=== PATIENT | male | born 1990 | race African-American/Black ===

== ENCOUNTER 2016-09-23 11:47 | Emergency (ER) | payer SELFPAY ==
[~2016-09-23] VITALS: Ht 170.2 cm; Wt 76.0 kg
[~2016-09-23 11:47] MED LIST: CARB200T16 PO
[2016-09-23 11:50] VITALS: BP 130/70; PULSE 82; RESP 16; TEMP 98.1; O2SAT 98
[2016-09-23] MEDS ORDERED: CARB200T PO (11:51)
--- NOTE | 2016-09-23 12:37 | PD ---
HPI Chief Complaint: Musculoskeletal Complaint Time Seen by Provider: 12:35 Travel History International Travel<30 days: No Contact w/Intl Traveler<30days: No Traveled to known affect area: No History of Present Illness HPI 26-year-old male presents to the emergency department for evaluation right ankle injury that occurred yesterday morning while playing basketball. He states he inverted his right ankle and fell. He denies any other injury. He reports a history of seizures. He takes carbamazepine for his seizures. Patient denies any head injury else see. No neck pain or back pain. No chest pain or abdominal pain. No nausea or vomiting. No other complaints. PFSH Past Medical History Autoimmune Disease: No Anxiety: No Depression: No Cardiovascular Problems: No Diminished Hearing: No Gastrointestinal Disorders: No Genitourinary: No Musculoskeletal: No Neurologic: Yes (SEIZURE) Psychiatric: No Immunizations Current: Yes Seizures: Yes Past Surgical History Eye Surgery: Yes ([id number] NUMEROUS EYE SURGERIES right) Other Surgery: Yes Social History Alcohol Use: No Tobacco Use: No Substance Use: Yes (MARIJUANA) Allergies-Medications (Allergen,Severity, Reaction): Coded Allergies: No Known Allergies (Verified , 09/23/16) Reported Meds & Prescriptions Reported Meds & Active Scripts Active Reported Carbamazepine 200 Mg Tab 200 Mg PO BID Review of Systems Except as stated in HPI: all other systems reviewed are Neg Physical Exam Narrative GENERAL: Well-developed well-nourished male patient, afebrile. SKIN: Warm and dry. HEAD: Normocephalic. Atraumatic. EYES: No scleral icterus. No injection or drainage. NECK: Supple, trachea midline. No JVD or lymphadenopathy. CARDIOVASCULAR: Regular rate and rhythm without murmurs, gallops, or rubs. Right pedal pulse is 2+. RESPIRATORY: Breath sounds equal bilaterally. No accessory muscle use. Lungs sounds are clear to auscultation. GASTROINTESTINAL: Abdomen soft, non-tender, nondistended. MUSCULOSKELETAL: No cyanosis, or edema. Patient has swelling and pain over the right lateral ankle. Negative Sherman's test. Patient has full sensation to the distal lower extremity. BACK: Nontender without obvious deformity. No CVA tenderness. Data Data Last Documented VS Vital Signs Date Time Temp Pulse Resp B/P Pulse Ox O2 Delivery O2 Flow Rate FiO2 09/23/16 11:50 98.1 82 16 130/70 98 Room Air Orders Ankle, Complete ([id number]) (09/23/16 ) [facility] Medical Decision Making Medical Screen Exam Complete: Yes Emergency Medical Condition: Yes Medical Record Reviewed: Yes Interpretation(s) x-ray right ankle - CONCLUSION: Unremarkable examination of the right ankle. Differential Diagnosis Fracture versus sprain versus dislocation Narrative Course 26-year-old male presents to the emergency department for evaluation of right ankle injury that occurred yesterday morning while playing basketball. He denies any other injury. X-ray of the right ankle is ordered and pending. X-ray of the right ankle is unremarkable. Patient is provided Ethan bandage in the emergency department. He declines crutches at this time. He does request a note for work. Patient is instructed to ice, elevate, ibuprofen for pain. He verbalizes understanding and agreement. Diagnosis Primary Impression: Right ankle sprain Qualified Code: S93.401A - Sprain of right ankle, unspecified ligament, initial encounter Referrals: Primary Care Physician call for appointment Patient Instructions: Ankle Sprain (ED), General Instructions Departure Forms: Tests/Procedures, Work Release Enter return to work date: Sep 25, 2016 Additional Instructions: Wear Ethan bandage as needed for support. Ice for 20 minutes 4-5 times daily. Elevate. Take ibuprofen as instructed as needed with food for pain. Follow-up with a primary care physician. Return to the emergency department for any acute worsening of symptoms. Med/Other Pt SpecificInfo: Prescription(s) given Scripts Ibuprofen 800 Mg [id number] Mg PO TID PRN (PAIN SCALE 1 TO 10) #21 TAB Ref 0 Prov:Sirena Jennings 09/23/16 Disposition: 01 DISCHARGE HOME Condition: Stable Sirena Jennings Sep 23, 2016 12:37
--- NOTE | 2016-09-23 13:16 | RADRPT ---
EXAM DATE/TIME: 09/23/2016 12:57 [place] COMPARISON: None. INDICATIONS : Left ankle pain after twisting playing basketball. MEDICAL HISTORY : None. SURGICAL HISTORY : None. ENCOUNTER: Initial ACUITY: 1 day PAIN SCORE: 10/10 LOCATION: Right lateral ankle. FINDINGS: Three view exam was performed of the right ankle. The bony structures are in normal alignment. No e vidence of fracture, dislocation, or soft tissue swelling. The ankle mortise is intact. No radiopaq ue foreign bodies are seen. Bony mineralization is normal. CONCLUSION: Unremarkable examination of the right ankle. Nancy Hernandez MD on September 23, 2016 at 13:15 Board Certified Radiologist. This report was verified electronically.
[2016-09-23] MEDS ORDERED: IBUP800T23 PO (13:24)
== END 2016-09-23 13:32 | disposition home or self-care (01) ==
LOC: NEPB 11:47
DX: S93.401A Sprain of unspecified ligament of right ankle, initial encounter (principal); R56.9 Unspecified convulsions; X50.1XXA Overexertion from prolonged static or awkward postures, initial encounter; X50.9XXA Other and unspecified overexertion or strenuous movements or postures, initial encounter; Y93.67 Activity, basketball; Y92.9 Unspecified place or not applicable; Y99.9 Unspecified external cause status
CPT/HCPCS: 73610; 99283